=== PATIENT | female | born 1990 | race Hispanic/Latino ===

== ENCOUNTER → 2019-06-17 | Outpatient (CLI) | payer BC ==
--- NOTE | 2019-06-17 19:18 | REP ---
Chest x-ray: Two views. History: Nonspecific reactive skin testing. Without active tuberculosis . Comparison study: August 20, 2011. . Findings: The lungs are well inflated and free of infiltrate. The pleural angles are sharp. The heart size is normal. Pulmonary vasculature is not increased. No significant bony abnormality is seen. Impression: Negative chest x-ray. Electronically Signed by Shan Pimentel MD 06/17/2019 07:10 P
== END ==
LOC: M WUC 17:48
PROVIDERS: ATTEND Physician Assistant
DX: R76.11 Nonspecific reaction to tuberculin skin test without active tuberculosis (principal)

== ENCOUNTER → 2019-08-28 | Outpatient (CLI) | payer SELFPAY ==
--- NOTE | 2019-08-28 13:04 | REP ---
Pelvic sonography: History: Pelvic pain. Check IUD. Findings: Transabdominal and transvaginal scanning are performed. Uterine dimensions are normal at 7.0 x 4.0 x 4.5 cm. Endometrial echo is 0.8 cm thick. IUD is visible in the lower uterine segment/cervical endometrial canal. No free fluid or focal uterine mass is seen. Visualized bladder peterson are smooth. Normal ovaries are seen. Right ovary measures 3.3 x 2.3 x 2.3 cm. It contains a 2.4 cm follicle cyst. Left ovary measures 2.0 x 1.5 x 1.9 cm. Doppler flow was observed in both ovaries. No free fluid. Impression: IUD is seen in the lower uterine segment/cervical endometrium. No other abnormal finding. Electronically Signed by Shan Pimentel MD 08/28/2019 12:56 P
== END ==
LOC: M RAD 11:22
PROVIDERS: ATTEND Nurse Practitioner Family
DX: R10.2 Pelvic and perineal pain (principal)

== ENCOUNTER → 2020-12-12 | Outpatient (REF) | payer SELFPAY | LOC: M WUC 19:39 | PROVIDERS: ATTEND Physician Assistant | DX: J02.9 Acute pharyngitis, unspecified (principal) ==

== ENCOUNTER 2021-06-17 21:09 | Emergency (ER) | payer SELFPAY ==
[~2021-06-17] VITALS: Ht 152.4 cm; Wt 63.7 kg
[2021-06-17] MEDS ORDERED: OMEP10CASR PO (21:22)
[2021-06-17 22:55] LABS: BASO # 0.1 10^3/uL (0.0-0.2); BASO % 0.8 % (0.0-1.0); EOS # 0.2 10^3/uL (0.0-0.5); EOS % 2.1 % (0.0-3.0); HEMATOCRIT 40.6 % (36.0-47.0); HEMOGLOBIN 14.1 g/dl (12.0-15.5); LYMPH # 4.7 10^3/uL (1.5-5.0); LYMPH % 44.4 % (24.0-44.0); MEAN CORPUSCULAR HEMOGLOBIN 30.7 pg (27.0-33.0); MEAN CORPUSCULAR HGB CONC 34.7 g/dl (32.0-36.5); MEAN CORPUSCULAR VOLUME 88.3 fl (80.0-96.0); MONO # 0.7 10^3/uL (0.0-0.8); MONO % 6.9 % (2.0-8.0); NEUTROPHILS # 4.9 10^3/uL (1.5-8.5); NEUTROPHILS % 45.4 % (36.0-66.0); PLATELET COUNT, AUTOMATED 410 10^3/uL (150-450); WHITE BLOOD COUNT 10.6 10^3/uL (4.0-10.0)
[2021-06-17 22:56] LABS: APPEARANCE, URINE CLEAR (CLEAR); BACTERIA, URINE AUTO NEGATIVE (NEGATIVE); BILIRUBIN, URINE AUTO NEGATIVE (NEGATIVE); BLOOD, URINE BLOOD NEGATIVE (NEGATIVE); COLOR, URINE YELLOW (YELLOW); GLUCOSE, URINE (UA) AUTO NEGATIVE (NEGATIVE); KETONE, URINE AUTO 1+ mg/dL (NEGATIVE); LEUKOCYTE ESTERASE, URINE AUTO NEGATIVE (NEGATIVE); NITRITE, URINE AUTO NEGATIVE (NEGATIVE); PROTEIN, URINE AUTO NEGATIVE (NEGATIVE); RBC, URINE AUTO 2 /HPF (0-3); SPECIFIC GRAVITY URINE AUTO 1.011 (1.002-1.035); SQUAMOUS EPITHELIAL CELL UR AU 1 /HPF (0-6); UROBILINOGEN, URINE AUTO 0.2 mg/dL (0.0-2.0); WBC, URINE AUTO 0 /HPF (0-3)
[2021-06-17 23:26] LABS: AMPHETAMINES LEVEL URINE NEGATIVE (NEGATIVE); BARBITURATES URINE NEGATIVE (NEGATIVE); BENZODIAZEPINES URINE NEGATIVE (NEGATIVE); CANNABINOIDS URINE NEGATIVE (NEGATIVE); COCAINE METABOLITE URINE NEGATIVE (NEGATIVE); METHADONE URINE NEGATIVE (NEGATIVE); OPIATES URINE NEGATIVE (NEGATIVE); PHENCYCLIDINE URINE NEGATIVE (NEGATIVE)
[2021-06-17 23:27] LABS: ALBUMIN 4.4 GM/DL (3.2-5.2); ALT/SGPT 26 U/L (12-78); BILIRUBIN,DIRECT 0.2 MG/DL (0.0-0.2); BILIRUBIN,TOTAL 0.5 MG/DL (0.2-1.0); BLOOD UREA NITROGEN 9 MG/DL (7-18); CALCIUM LEVEL 9.1 MG/DL (8.5-10.1); CARBON DIOXIDE LEVEL 28 MEQ/L (21-32); CHLORIDE LEVEL 104 MEQ/L (98-107); CREATININE FOR GFR 0.73 MG/DL (0.55-1.30); GLOMERULAR FILTRATION RATE > 60.0 (>60); GLUCOSE, FASTING 90 MG/DL (70-100); SODIUM LEVEL 138 MEQ/L (136-145)
[2021-06-17] MEDS ORDERED: ONDA4TAB6 PO (23:44)
[2021-06-18 00:27] VITALS: BP 122/68
== END 2021-06-18 00:30 | disposition home or self-care (01) ==
LOC: M ED 21:09
DX: R11.2 Nausea with vomiting, unspecified (principal); R42 Dizziness and giddiness; F10.129 Alcohol abuse with intoxication, unspecified; Z79.899 Other long term (current) drug therapy

== ENCOUNTER → 2021-06-23 | Outpatient (CLI) | payer SELFPAY ==
[~2021-06-23] MED LIST: OMEP10CASR PO; ONDA4TAB6 PO
[2021-06-23 16:55] LABS: BASO # 0.1 10^3/uL (0.0-0.2); BASO % 0.7 % (0.0-1.0); EOS # 0.2 10^3/uL (0.0-0.5); EOS % 2.2 % (0.0-3.0); HEMATOCRIT 42.7 % (36.0-47.0); HEMOGLOBIN 14.2 g/dl (12.0-15.5); LYMPH # 2.1 10^3/uL (1.5-5.0); LYMPH % 29.7 % (24.0-44.0); MEAN CORPUSCULAR HEMOGLOBIN 30.1 pg (27.0-33.0); MEAN CORPUSCULAR HGB CONC 33.3 g/dl (32.0-36.5); MEAN CORPUSCULAR VOLUME 90.7 fl (80.0-96.0); MONO # 0.5 10^3/uL (0.0-0.8); MONO % 6.7 % (2.0-8.0); NEUTROPHILS # 4.2 10^3/uL (1.5-8.5); NEUTROPHILS % 60.4 % (36.0-66.0); PLATELET COUNT, AUTOMATED 357 10^3/uL (150-450); RED BLOOD COUNT 4.71 10^6/uL (4.00-5.40); WHITE BLOOD COUNT 6.9 10^3/uL (4.0-10.0)
[2021-06-23 17:34] LABS: ALBUMIN 4.4 GM/DL (3.2-5.2); ALT/SGPT 25 U/L (12-78); BILIRUBIN,TOTAL 0.5 MG/DL (0.2-1.0); BLOOD UREA NITROGEN 11 MG/DL (7-18); CALCIUM LEVEL 9.2 MG/DL (8.5-10.1); CARBON DIOXIDE LEVEL 27 MEQ/L (21-32); CHLORIDE LEVEL 107 MEQ/L (98-107); CREATININE FOR GFR 0.78 MG/DL (0.55-1.30); FREE T4 0.97 NG/DL (0.76-1.46); GLOMERULAR FILTRATION RATE > 60.0 (>60); GLUCOSE, FASTING 83 MG/DL (70-100); POTASSIUM SERUM 4.1 MEQ/L (3.5-5.1); SODIUM LEVEL 139 MEQ/L (136-145); TOTAL PROTEIN 8.2 GM/DL (6.4-8.2)
[2021-06-23 18:34] LABS: ERYTHROCYTE SEDIMENTATION RATE 3 mm/hr (0-20)
== END ==
LOC: M WUC 14:27
PROVIDERS: ATTEND Physician Assistant
DX: R42 Dizziness and giddiness (principal)

== ENCOUNTER → 2021-10-31 | Outpatient (CLI) | payer BC ==
--- NOTE | 2021-11-01 16:38 | REP ---
INDICATION: DIZZINESS W/ GAIT CHANGES COMPARISON: None. TECHNIQUE: Axial noncontrast images from the skull base to the vertex with coronal reformations. This CT examination was performed using the following dose reduction techniques: Automated exposure control, adjustment of mA and/or kv according to the patient's size, and use of iterative reconstruction technique. FINDINGS: The ventricles, sulci, and cisterns are normal in position and appearance. Hart-white differentiation is maintained. No acute intracranial hemorrhage, mass/mass effect, pathology or trauma/injury. No evidence for acute infarction. No extra-axial fluid collection. Calvarium is intact. Paranasal sinuses and mastoid air cells are clear. IMPRESSION: Normal noncontrast head CT. No evidence for acute intracranial pathology or trauma/injury. <Electronically signed by Rangel Michael > 11/01/21 [id number]
== END ==
LOC: M PLAIMG 11:10
PROVIDERS: ATTEND Registered Nurse
DX: R42 Dizziness and giddiness (principal)

== ENCOUNTER → 2022-01-03 | Outpatient (CLI) | payer BC ==
[~2022-01-03] MED LIST changes: +PROHANCE 279.3MG/ML 15ML VIAL As Ordered ONE
== END ==
LOC: M RAD 10:38
PROVIDERS: ATTEND Otolaryngology
DX: R42 Dizziness and giddiness (principal)
CPT/HCPCS: 70553; A9576

== ENCOUNTER → 2022-10-18 | Outpatient (REF) | payer BC ==
[~2022-10-18] MED LIST changes: -PROHANCE 279.3MG/ML 15ML VIAL As Ordered ONE
== END ==
LOC: M LAB REF 13:01
PROVIDERS: ATTEND Registered Nurse
DX: K21.9 Gastro-esophageal reflux disease without esophagitis (principal)